=== PATIENT | female | born 1990 | race Caucasian/White ===

== ENCOUNTER 2017-01-20 19:57 | Emergency (ER) | payer OTHER ==
[2017-01-20 20:07] VITALS: BP 121/77
[2017-01-20] MEDS ORDERED: diphenhydrAMINE 25 MG CAPSULE PO STA (20:16)
--- NOTE | 2017-01-20 20:19 | ED Physician Documentation ---
PD HPI SKIN - Stated complaint Stated Complaint: RASH/NUMBNESS - Chief complaint Chief Complaint: General - History obtained from History obtained from: Patient - History of Present Illness Timing - onset: How many days ago (2) Timing - details: Gradual onset, Still present Location: Back Quality / character: Itchy, Painful, Raised Associated symptoms: No: Fever, Myalgias, Joint pain Contributing factors: Insect bite /sting Similar symptoms before: No diagnosis Recently seen: Not recently seen - Additional information Additional information: Patient is a 26 year old female with no significant past medical history who is presenting to the emergency department for skin rash. Patient states that she noticed it a few days ago and it isn't going away. patient states that she now has some numbness in that area. Patient has not taken anything for the rash. Review of Systems Constitutional: denies: Fever, Myalgias Eyes: denies: Decreased vision Ears: denies: Ear pain, Drainage/discharge Nose: denies: Congestion Throat: denies: Oral lesions / sores, Sore throat, Swollen tonsils Cardiac: denies: Palpitations Respiratory: denies: Cough, Wheezing GI: denies: Nausea, Vomiting : denies: Dysuria, Frequency Skin: reports: Rash. denies: Lesions Musculoskeletal: denies: Neck pain, Back pain, Extremity pain Neurologic: reports: Numbness. denies: Generalized weakness, Focal weakness Immunocompromised: denies: Immunocompromised PD PAST MEDICAL HISTORY - Past Medical History Past Medical History: No - Past Surgical History Past Surgical History: No - Present Medications Home Medications: Ambulatory Orders Medication Instructions Recorded Confirmed Norgestimate-Ethinyl Estradiol 1 tab PO DAILY 01/20/17 01/20/17 [Ortho Tri-Cyclen 28 Tablet] - Allergies Allergies/Adverse Reactions: Allergies Allergy/AdvReac Type Severity Reaction Status Date / Time No Known Drug Allergies Allergy Verified 01/20/17 20:07 - Social History Does the pt smoke?: No Smoking Status: Never smoker Does the pt drink ETOH?: No Does the pt have substance abuse?: No - Immunizations Immunizations are current?: Yes PD ED PE NORMAL - Vitals Vital signs reviewed: Yes - General General: Alert and oriented X 3, No acute distress - HEENT HEENT: Atraumatic, PERRL - Neck Neck: Supple, no meningeal sign - Cardiac Cardiac: RRR, No murmur - Respiratory Respiratory: No respiratory distress, Clear bilaterally - Abdomen Abdomen: Soft - Extremities Extremities: No deformity - Neuro Neuro: Alert and oriented X 3, No motor deficit, No sensory deficit, Normal speech - Psych Psych: Normal mood, Normal affect PD ED PE EXPANDED - Derm Derm: Rash (rash consistent with allergic reaction on her back, signs of mild sunburn), Urticaria Results - Vitals Vitals: Vital Signs - 24 hr 01/20/17 20:02 Temperature 36.7 C Heart Rate 77 Respiratory 17 Rate Blood Pressure 121/77 O2 Saturation 99 Oxygen O2 Source Room air PD MEDICAL DECISION MAKING - ED course Complexity details: reviewed old records, re-evaluated patient, considered differential, d/w patient ED course: Patient was seen and examined at bedside. patient was well appearing and in no distress. patient was treated with benadryl. Patient had no systemic findings and was stable for discharge with outpatient follow up. Departure - Departure Disposition: 01 Home, Self Care Clinical Impression: Allergic reaction Condition: Good Instructions: ED Bite Sting Insect Local Allergic React Follow-Up: Jailene Angeles MD [Primary Care Provider] - As Needed Comments: Your symptoms today are being caused by an allergic reaction. You can take benadryl and then apply ice or topical cream to the area. You should monitor for signs of infection as sometimes you can get an infection from scratching the area. You should follow up with your pmd as needed. You may return to the emergency department at any time for new, worsening or uncontrollable symptoms. Discharge Date/Time: 01/20/17 20:30
[2017-01-20] MEDS ORDERED: diphenhydrAMINE 25 MG CAPSULE PO ONE (20:23)
== END 2017-01-20 20:30 | disposition home or self-care (01) ==
LOC: ED 19:57
DX: T78.40XA Allergy, unspecified, initial encounter (principal); X58.XXXA Exposure to other specified factors, initial encounter
CPT/HCPCS: 99283; A9270